=== PATIENT | female | born 1975 | race African-American/Black ===

== ENCOUNTER 2020-07-25 18:31 | Emergency (ER) | payer MEDICAID, OTHER ==
[~2020-07-25] VITALS: Ht 170.2 cm; Wt 56.8 kg
[2020-07-25 19:23] VITALS: BP 132/87
== END 2020-07-25 20:09 | disposition left against medical advice (07) ==
LOC: ER 18:31
DX: S01.552A Open bite of oral cavity, initial encounter (principal); S01.351A Open bite of right ear, initial encounter; Z53.21 Procedure and treatment not carried out due to patient leaving prior to being seen by health care provider; W54.0XXA Bitten by dog, initial encounter; Y93.89 Activity, other specified; Y92.89 Other specified places as the place of occurrence of the external cause; Y99.8 Other external cause status